=== PATIENT | male | born 1960 | race Caucasian/White ===

== ENCOUNTER 2017-10-11 17:26 | Inpatient (IN) ==
[2017-10-11 19:55] LABS: Basophils % 0.4 %; Eosinophils # 0.3 K/mcL (0.0-0.6); Hematocrit 32.1 % (37.5-50.1); Hemoglobin 10.9 g/dL (12.9-16.9); Immature Granulocytes % 0.9 % (0-4); Lymphocytes # 2.3 K/mcL (0.6-4.6); Lymphocytes % 22.7 %; Mean Corpuscular Hemoglobin 32.4 pg (28.0-33.3); Mean Corpuscular Volume 95.5 fL (83.0-100.0); Mean Platelet Volume 8.8 fL (9.4-12.4); Monocytes # 0.9 K/mcL (0.0-1.3); Neutrophils # 6.6 K/mcL (1.6-8.9); Platelet Count 421 K/mcL (140-400); Red Blood Count 3.36 M/mcL (4.19-5.50); Red Cell Distribution Width 12.5 % (11.5-14.5)
[2017-10-11] MEDS: *HR* OxyCODONE/APAP 5/325 TABLET PO PRN (20:04)
[2017-10-12] MEDS: *HR* OxyCODONE/APAP 5/325 TABLET PO PRN ×3 (02:14→10:11)
[2017-10-12 05:16] LABS: INR 1.1; Prothrombin Time 11.9 Seconds (9.4-12.1)
[2017-10-12 05:19] LABS: Activated Partial Thrombo Time 31.8 Seconds (26.0-36.0)
[2017-10-12 05:25] LABS: BUN/Creatinine Ratio 17 (6-26); Blood Urea Nitrogen 12 mg/dL (8-26); Calcium 8.7 mg/dL (8.6-10.8); Carbon Dioxide 24 mEq/L (19-29); Chloride 105 mEq/L (98-109); Glucose 111 mg/dL (70-99); Osmolality,Calculated 286 (280-300); Sodium 138 mEq/L (136-145); eGFR For African Americans > 60 (> 60); eGFR For Non-African Americans > 60 (> 60)
--- NOTE | 2017-10-12 09:02 | Internal Med History&Physical ---
Date of Encounter: 10/13/17 Time of Encounter: 08:57 Assessment and Plan (1) Hamstring tear Current visit: Yes Status: Inactive Patient admitted to the rehab unit status post complete tear of left hamstrings and repair by Dr. Willoughby. He has restrictions of extension of the knee and flexion of the hip and is in a brace. He will have PT and OT and will need extensive training for transfers, toileting and ADLs etc. Currently working on pain control with muscle relaxers and opiates. I anticipate only a short stay here. (2) Hematoma of left thigh Current visit: Yes Status: Acute Patient had a hematoma related to the hamstring tear. Surgically drained. Has extensive bruising as expected. Will undergo therapies. Qualifiers: Encounter type: subsequent encounter Qualified Code(s): S70.12XD - Contusion of left thigh, subsequent encounter (3) Postoperative anemia Current visit: Yes Status: Acute He has had a small drop in his hemoglobin. We will follow. No active bleeding noted. No need for transfusion and he is asymptomatic in that regard. (4) GERD (gastroesophageal reflux disease) Current visit: Yes Status: Chronic Chronic history of GERD under good control. Qualifiers: Esophagitis presence: without esophagitis Qualified Code(s): K21.9 - Gastro -esophageal reflux disease without esophagitis (5) BPH associated with nocturia Current visit: Yes Status: Chronic History chronic BPH and urinary symptoms and now under good control with tamsulosin. (6) DVT prophylaxis Current visit: Yes Status: Acute Because of his extensive hematoma in the thigh he is not a good candidate for full anticoagulation for DVT prophylaxis. The surgeon wants him to be on a baby aspirin for the next month. Internal Medicine - H&P: HPI Chief complaint: I am here for rehab after my hamstring tear Admitted From: Hospital to Hospital Transfer Plans for Post Hospital Care: Home History of present illness: Mr. Alva is a 57 year old male who is usually in very good health is admitted to [facility] Rehabilitation Unit having had full-thickness avulsion of all 3 hamstring tendons at the insertion and massive hematoma injury and subsequent repair by Dr. Willoughby at [facility]. Patient was of good health and usual activities until a few days prior to the injury when he was digging a hole over the septic tank clean out. When he was straddling the hole his left lower extremity gave way and had sudden onset of pain. He was evaluated in the ER and had negative x-rays and CT scan and was sent home. The pain continued in the thigh and buttock area and came back to the ER and was admitted at [facility] and was subsequently found to have hamstring tears shown on MRI. He was taken to surgery and that was repaired. He now has restrictions on hip flexion and knee extension as not to have greater than 45 degrees of hip flexion and limiting straightenimg the knee past 30 degrees. He has a brace locked out to those measurements. He is to have toe-touch weightbearing on the operative knee and use crutches or walker for ambulation. For DVT prophylaxis the surgeon has recommended aspirin 81 mg the next 4 weeks. He lives in a 1 floor home and has 3 steps to enter into the house. 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 Past Med Surg Social Fam HX - Past Medical History Medical history: GERD Psychiatric history: no psych history - Past Surgical History Surgical History: vasectomy - Social History Smoking Status: Former smoker (He quit 16 years ago.) Smokeless Tobacco Status: No Alcohol use: rarely Drug use: none Occupational status: employed Current living situation: Home - Independent Activity Level: Independent ambulation (Prior to surgery he was very independent. Currently requiring walker) Recent Out of Country Travel Within the Last 8 Weeks: No Exposure or Possible Exposure to Illness During Travel: No - Family History Mother History Unknown: Yes Adopted: No Age: 72 Living Status: Still Living Hx Family Endocrine Disorder: Yes (Thyroid) Father Living Status: Still Living Internal Medicine - H&P: Meds Cyclobenzaprine [Flexeril] 10 mg PO TID #15 tablet 10/05/17 [Rx] Omeprazole [PriLOSEC] 20 mg PO DAILY 10/11/17 [History] Tamsulosin [Flomax] 0.4 mg PO HS 10/11/17 [History] 3 Allergy/AdvReac Type Severity Reaction Status Date / Time No Known Allergies Allergy Verified 10/05/17 20:49 - Constitutional Constitutional: no chills, no fever(s) - EENT Eyes: no change in vision Ears: no ear discharge, no ear pain Nose, mouth and throat: no dental pain, no neck mass, no neck pain, no sinus pain, no sore throat - Cardiovascular Cardiovascular ROS IM: no chest pain, no claudication, no dyspnea, no dyspnea on exertion, no edema, no irregular heart rhythm, no lightheadedness, no syncope - Respiratory Respiratory: no cough, no dyspnea, no dyspnea on exertion, no chest congestion - Gastrointestinal Gastrointestinal: no abdominal pain, no change in bowel habits, no constipation , no diarrhea, no hematochezia, no melena - Genitourinary Genitourinary ROS male: no dysuria, no urinary frequency, no urinary incontinence, no urinary urgency Additional comments: Patient uses tamsulosin which has reduced his night time nocturia frequency. - Musculoskeletal Additional comments: Patient has pain in the left lower extremity in the thigh down to the knee. He has extensive bruising in the posterior thigh. He feels tightening particularly in the medial compartment. He denies any calf or foot or ankle pain. The Percocet pill has not done as good a job as Dilaudid and Percocet combination at [facility]. - Integumentary Additional comments: His extensive bruising of the posterior and lateral left thigh from his injury. - Neurological Neurological ROS: no confusion, no loss of vision, no tremor(s), no weakness - Psychiatric Psychiatric: no confusion, no depression - Constitutional Vitals: Temp Pulse Resp BP Pulse Ox 98.1 F 100 16 104/63 93 10/12/17 07:32 10/12/17 07:32 10/12/17 07:32 10/12/17 07:32 10/12/17 07:32 General appearance: Present: A&O X 3, pleasant, no acute distress, answers questions appropriately - Head Head exam: Present: atraumatic - Eye Eye exam: Present: PERRL - ENT ENT exam: Present: normal oropharynx, TM's normal bilaterally - Neck Neck exam general surgery: Absent: lymphadenopathy, tenderness, nuchal rigidity , thyromegaly - Respiratory Respiratory exam: Present: CTAB - Cardiovascular Cardiovascular exam: Present: RRR, +S1, +S2. Absent: systolic murmur - GI/Abdominal GI/Abdominal exam: Present: soft. Absent: guarding, hepatomegaly, mass, tenderness - Extremities Exam Additional comments: Left lower extremity is in a brace to limit his hip flexion and knee extension. He has extensive bruising over the lateral and posterior left thigh. The incision in the left buttock crease is covered with clean dry dressing. The incision is intact. There is no drainage. He has appropriate tenderness. There is no significant warmth. From the knee downward there is no calf tenderness, no edema, no cellulitis or erythema. Pulses are intact. No skin breakdown. - Neurological Exam Neurological exam: Present: alert, CN II-XII intact, no focal deficits Internal Med - H&P Results - Labs CBC & Chem 7: 10/11/17 19:50 10/12/17 04:58 Labs: Short CBC Labs have been reviewed. Appropriate amount of anemia. Elevated platelet count and will follow. Minimally elevated glucose with no symptoms of diabetes. 10/11/17 Range/Units 19:50 WBC 10.3 (4.3-11.1) K/mcL Hgb 10.9 L (12.9-16.9) g/dL Hct 32.1 L (37.5-50.1) % Plt Count 421 H (140-400) K/mcL Neutrophils # 6.6 (1.6-8.9) K/mcL BMP 10/12/17 04:58 Sodium 138 Potassium 4.0 Chloride 105 Carbon Dioxide 24 BUN 12 Creatinine 0.72 Glucose 111 H Calcium 8.7 - VTE Documentation of Mechanical Device: Intermittent pneumatic compression device
[2017-10-12] MEDS: Aspirin Enteric Coated 81 MG Tablet PO SCH (10:11)
[2017-10-12] MEDS: *HR* OxyCODONE/APAP 5/325 TABLET PO SCH ×2 (12:11→16:17)
[2017-10-12] MEDS ORDERED: *HR* Morphine Immed Rel 30 MG TABLET PO ONE (15:50)
[2017-10-12] MEDS: *HR* Morphine Immed Rel 30 MG TABLET PO SCH (22:21)
[2017-10-13] MEDS: *HR* Morphine Immed Rel 30 MG TABLET PO SCH ×5 (00:24→23:00)
[2017-10-13] MEDS: Aspirin Enteric Coated 81 MG Tablet PO SCH (09:41)
--- NOTE | 2017-10-13 18:40 | Internal Med Progress Note ---
Date of Encounter: 10/13/17 Time of Encounter: 18:38 - Assessment and plan (1) Hamstring tear Current Visit: Yes Status: Inactive Assessment and plan: Continued use of the brace for the restrictions of movement of the left lower extremity. Undergoing PT and OT. They feel he may be ready to go home tomorrow. We talked about pain medications and he is gone 12 hours with none. Option for morphine versus Percocet discussed. Will continue with the muscle relaxer which is helpful. (2) Hematoma of left thigh Current Visit: Yes Status: Acute Assessment and plan: No acute changes. Qualifiers: Encounter type: subsequent encounter Qualified Code(s): S70.12XD - Contusion of left thigh, subsequent encounter (3) Postoperative anemia Current Visit: Yes Status: Acute Assessment and plan: No symptoms. No active bleeding. (4) GERD (gastroesophageal reflux disease) Current Visit: Yes Status: Chronic Assessment and plan: No GI symptoms. Qualifiers: Esophagitis presence: without esophagitis Qualified Code(s): K21.9 - Gastro -esophageal reflux disease without esophagitis (5) BPH associated with nocturia Current Visit: Yes Status: Chronic Assessment and plan: No new urinary symptoms. (6) DVT prophylaxis Current Visit: Yes Status: Acute Assessment and plan: Use of aspirin, pneumatic compression devices on lower extremities while in bed and early ambulation. - Subjective Interval history: Patient has had a fairly good day. I saw him twice. In the morning had concerns about how the morphine helped the pain but made his head a bit fuzzy. This evening though he has gone over 12 hours with no opiate analgesia. The muscle relaxer has been helpful. His biggest concern is how to be able to sit on the toilet enough to be able to have a bowel movement. He cannot flex his hips to 90 degrees. He has had flatus but no stool at the present time. We talked about strategies for ADLs, uses a hospital bed or rails on his bed at home to help facilitate turning and sitting up in bed. He said he is doing well transferring from bed to chair and up using a walker. He is not having any cardiovascular symptoms. - Constitutional Vitals: Temp Pulse Resp BP Pulse Ox 98.2 F 99 18 107/65 95 10/13/17 07:17 10/13/17 07:17 10/13/17 07:17 10/13/17 07:17 10/13/17 07:17 General appearance: Present: A&O X 3, pleasant, no acute distress, answers questions appropriately - Respiratory Respiratory exam: Present: CTAB - Cardiovascular Cardiovascular exam: Present: RRR, +S1, +S2. Absent: systolic murmur - GI/Abdominal GI/Abdominal exam: Present: soft. Absent: tenderness - Extremities Exam Extremities exam: Absent: calf tenderness Additional comments: His brace is intact in the left lower extremity keeping him from flexing the hip or extension at the knee. He has continued appropriate bruising over the anterior and lateral thigh. There is no calf tenderness or swelling. No signs of DVT. Good perfusion. Internal Medicine: Result - Labs CBC & Chem 7: 10/11/17 19:50 10/12/17 04:58 Labs: Results have been reviewed. Stable. - ABG Interpretation ABG results: PT/INR, D-dimer PT 11.9 Seconds (9.4-12.1) 10/12/17 04:58 - VTE Documentation of Mechanical Device: Intermittent pneumatic compression device Consult Discharge Plan - Plan Referrals: Kojo Alcazar, [employer]PPL[employer] CH[employer] CONSULTANT [Primary Care Provider] -
[2017-10-14] MEDS: *HR* Morphine Immed Rel 30 MG TABLET PO SCH ×2 (06:22→12:30)
--- NOTE | 2017-10-14 07:55 | Discharge Summary ---
Date of Encounter: 10/15/17 Time of Encounter: 07:44 - Discharge Diagnosis (1) Hamstring tear Priority: Primary Status: Inactive Comments: Patient had tear of the 3 heads of the left hamstring and required operative repair per Dr. Willoughby. Patient was then transferred to our rehabilitation unit. He underwent evaluation by PT and OT and receive those services. They felt that it is safe to send him home today as he met maximum inpatient therapy benefit. Therapies can be continued as an outpatient. Pain was under good control. He has follow-up appointments with and staff. (2) Hematoma of left thigh Priority: Secondary Status: Acute Comments: As above. He remained in his brace to limit his hip and knee movements. Qualifiers: Encounter type: subsequent encounter Qualified Code(s): S70.12XD - Contusion of left thigh, subsequent encounter (3) Postoperative anemia Priority: Secondary Status: Acute Comments: He had an appropriate post op drop in his hemoglobin. He had had a large hematoma in the left thigh from his hamstring tear. Did not have blood transfusion in our unit. (4) GERD (gastroesophageal reflux disease) Priority: Secondary Status: Chronic Comments: GERD remained under good control with his PPI. We will continue the same. Qualifiers: Esophagitis presence: without esophagitis Qualified Code(s): K21.9 - Gastro -esophageal reflux disease without esophagitis (5) BPH associated with nocturia Priority: Secondary Status: Chronic (6) DVT prophylaxis Priority: Secondary Status: Acute Comments: He had pneumatic compression device for lower extremities while in bed. He is to be on aspirin for 4 weeks. He did not have full anticoagulation because of his history of his hematoma. - Discharge Medications Prescriptions: OxyCODONE/APAP 5/325 [Percocet 5/325 MG] 1 each PO Q4HR PRN #20 tablet PRN Reason: Pain Morphine Immed Rel [Morphine Sulfate] 15 mg PO Q6HR PRN #20 tablet PRN Reason: Pain Cyclobenzaprine [Flexeril] 10 mg PO Q8HR #60 tablet Home Medications: Omeprazole [PriLOSEC] 20 mg PO DAILY 10/11/17 [History] Tamsulosin [Flomax] 0.4 mg PO HS 10/11/17 [History] Aspirin Enteric Coated [Aspirin EC] 81 mg PO DAILY tablet. 10/14/17 [Rx] Cyclobenzaprine [Flexeril] 10 mg PO Q8HR #60 tablet 10/14/17 [Rx] Morphine Immed Rel [Morphine Sulfate] 15 mg PO Q6HR PRN #20 tablet 10/14/17 [Rx] OxyCODONE/APAP 5/325 [Percocet 5/325 MG] 1 each PO Q4HR PRN #20 tablet 10/14/17 [Rx] Polyethylene Glycol 3350 [MiraLAX] 17 gm PO DAILY powd.pack 10/14/17 [Rx] Allergies/Adverse Reactions: 3 Allergy/AdvReac Type Severity Reaction Status Date / Time No Known Allergies Allergy Verified 10/05/17 20:49 Procedures/tests Complete & Pending: Laboratory Tests 10/11/17 10/12/17 10/12/17 19:50 04:58 04:58 WBC 10.3 RBC 3.36 L Hgb 10.9 L Hct 32.1 L MCV 95.5 MCH 32.4 MCHC 34.0 RDW 12.5 Plt Count 421 H MPV 8.8 L Immature Gran % 0.9 Seg Neutrophils % 64.0 Lymphocytes % 22.7 Monocytes % 9.0 Eosinophils % 3.0 Basophils % 0.4 Neutrophils # 6.6 Lymphocytes # 2.3 Monocytes # 0.9 Eosinophils # 0.3 Basophils # 0.0 PT 11.9 INR 1.1 APTT 31.8 Sodium 138 Potassium 4.0 Chloride 105 Carbon Dioxide 24 BUN 12 Creatinine 0.72 Est GFR ( Amer) > 60 Est GFR (Non-Af Amer) > 60 BUN/Creatinine Ratio 17 Glucose 111 H Calculated Osmolality 286 Calcium 8.7 Date of admission: 10/11/17 17:28 Primary care physician: Kojo Alcazar CNP Consults: 10/11/17 19:09 Consult to Occupational Therapy [CONS] Routine Comment: Evaluate, develop and implement POC Reason for Consult: rehab Consult to Physical Therapy [CONS] Routine Comment: Evaluate, develop and implement POC Reason for Consult: rehab Consult to Recreational Therapy [CONS] Routine Comment: Evaluate, develop and implement POC Consult to Field Administrative Assistant [CONS] Routine Reason for SW Consult: therapy Discharging clinician: Zurdo Knight Anticipated date of discharge: 10/14/17 - Patient Status Disposition: Home, Self-Care Condition: Good Functional capacity at discharge: uses cane/walker Overall status at discharge: patient is not back to baseline - Discharge Instructions Follow Up With: Kojo Alcazar CNP [Primary Care Provider] - (followup after done with surgical followups) Alexandre Willoughby MD [Non-Partnered Physician] - 10/19/17 10:00 am - Diet and Activity Activity: as per physical therapy Diet: advance to your usual diet Interval History: Overnight he did well. He denies any cardiac or respiratory symptoms today. He has required minimal amount of opiate analgesia. He walked well in the hallway this morning with his walker with physical therapy assistance. He is ready for discharge. Hospital course: Mr. Alva is a 57 year old male with left hamstring tear and repair. Was admitted to our rehab unit for therapies. Please the notes above. - Time Spent with Patient Total time spent providing and/or coordinating discharge services: - Constitutional Vitals: Temp Pulse Resp BP Pulse Ox 98.2 F 103 18 107/66 94 10/14/17 07:32 10/14/17 07:32 10/14/17 07:32 10/14/17 07:32 10/14/17 07:32 General appearance: Present: A&O X 3, pleasant, no acute distress, answers questions appropriately - Respiratory Respiratory exam: Present: CTAB - Cardiovascular Cardiovascular exam: Present: RRR, +S1, +S2 - GI/Abdominal GI/Abdominal exam: Present: soft. Absent: tenderness - Extremities Exam Additional comments: Continued bruising of the left thigh as expected and as seen on admission. His left calf is not swollen nor tender. Negative Homans sign. He remains in his brace to limit his hip and knee movement - VTE Documentation of Mechanical Device: Intermittent pneumatic compression device
[2017-10-14] MEDS: Aspirin Enteric Coated 81 MG Tablet PO SCH (09:25)
[2017-10-14] MEDS: *HR* OxyCODONE/APAP 5/325 TABLET PO PRN (12:29)
[2017-10-14 12:51] VITALS: BP 109/64
== END 2017-10-14 14:30 | disposition home or self-care (01) | DRG 946 ==
LOC: INPGRE 17:28
PROVIDERS: ADMIT Family Medicine; ATTEND Family Medicine